=== PATIENT | female | born 1995 | race African-American/Black ===

== ENCOUNTER 2020-12-09 04:44 | Emergency (ER) | payer MEDICAID, OTHER ==
[~2020-12-09] VITALS: Ht 160 cm; Wt 55.0 kg
[~2020-12-09 04:44] MED LIST: ALBU6.7H15 INH
[2020-12-09] MEDS ORDERED: MORPHINE SULFATE 4 MG/ML CPJ (NOT FOR IM USE) IV STA (05:29)
[2020-12-09] MEDS ORDERED: ONDANSETRON HCL 4MG/2ML INJ IV STA (05:29)
[2020-12-09] MEDS ORDERED: KETOROLAC 30MG/ML VIAL IV STA (05:29)
[2020-12-09] MEDS: MORPHINE SULFATE 2 MG/ML CPJ (NOT FOR IM USE) IV SCH ×2 (05:45→05:55)
[2020-12-09 06:12] LABS: HEMATOCRIT. 37.5 % (36.0-48.0); HEMOGLOBIN. 12.5 g/dL (12.0-16.0); MEAN CORPUSCULAR HEMOGLOBIN 29.4 pg (28.0-32.0); MEAN CORPUSCULAR VOLUME 88.3 fL (81.0-99.0); MEAN PLATELET VOLUME 8.6 fl (7.4-10.4); PLATELET 242 x1000/uL (130-400); RED BLOOD CELL COUNT 4.24 mill/uL (4.2-5.4); RED CELL DISTRIBUTION WIDTH 13.9 % (11.6-14.6)
[2020-12-09 06:18] LABS: CHLORIDE 108 mEq/L (98-107)
[2020-12-09 06:27] LABS: HCG SCREEN NEGATIVE
[2020-12-09 06:28] LABS: COLOR URINE DK YELLOW (YELLOW); KETONES URINE NEGATIVE (NEGATIVE); LEUKOCYTE ESTERASE URINE 1+ (NEGATIVE); NITRITE URINE NEGATIVE (NEGATIVE); OCCULT BLOOD URINE 2+ (NEGATIVE); PH URINE 5.5 (4.5-8.0); PROTEIN URINE TRACE (NEGATIVE); SPECIFIC GRAVITY URINE 1.034 (1.005-1.030); UROBILINOGEN URINE 0.2 E.U./dL (0.2-1.0)
[2020-12-09 06:30] VITALS: BP 100/61
[2020-12-09 06:30] LABS: CLARITY URINE HAZY (CLEAR)
[2020-12-09 06:35] LABS: INR 1.1; PROTHROMBIN TIME 11.9 sec (9.6-11.0)
[2020-12-09] MEDS ORDERED: ONDA4TAB5 PO (07:19)
[2020-12-09] MEDS ORDERED: NITR100C PO (07:19)
[2020-12-09] MEDS ORDERED: TOPUD PO (07:19)
[2020-12-09 07:39] LABS: PLATELET ESTIMATE NORMAL
== END 2020-12-09 07:57 | disposition home or self-care (01) ==
LOC: ER 04:44
DX: R10.84 Generalized abdominal pain (principal); N39.0 Urinary tract infection, site not specified; J45.909 Unspecified asthma, uncomplicated; Z20.822 Contact with and (suspected) exposure to COVID-19
CPT/HCPCS: 36415; 74176; 80053; 81003; 83690; 84703; 85025; 85610; 96374; 96375; 99284; C9803; J1885; J2270; J2405; U0003; U0005